=== PATIENT | male | born 1965 | race African-American/Black ===

== ENCOUNTER 2021-01-16 13:28 | Inpatient (IN) | payer OTHER ==
[2021-01-16 15:12] VITALS: BMI 32.5
[2021-01-16] MEDS ORDERED: MAGNESIUM CITRATE 300 ML BOTTLE PO PRN (21:57)
[2021-01-16] MEDS ORDERED: ACETAMINOPHEN 325 MG TABLET (FP) PO PRN (21:57)
[2021-01-16] MEDS ORDERED: IBUPROFEN 400 MG TABLET (FP) PO PRN (21:57)
[2021-01-16] MEDS ORDERED: guaiFENesin 200 MG/10 ML 10 ML UNIT-DOSE CUPS PO PRN (21:57)
[2021-01-16] MEDS ORDERED: MAGNESIUM HYDROX 2400MG/30ML ORAL SUSPENSION 30 ML CUP PO PRN (21:57)
[2021-01-16] MEDS ORDERED: MAG HYDROX/AL HYDROX/SIMETH 30 ML UNIT-DOSE CUP PO PRN (21:57)
[2021-01-16] MEDS ORDERED: LOPERAMIDE HCL 2 MG CAPSULE PO PRN (21:57)
[2021-01-16] MEDS ORDERED: P-EPHED 60MG/TRIPROLIDI 2.5MG TABLET PO PRN (21:57)
[2021-01-16] MEDS ORDERED: TUBERCULIN PPD 5 TU/0.1ML VIAL ID ONE (23:30)
[2021-01-16] MEDS: THIAMINE HCL 100 MG TABLET (FP) PO SCH (23:34)
[2021-01-16] MEDS: hydrOXYzine PAMOATE 25 MG CAPSULE (FP) PO SCH (23:34)
[2021-01-16] MEDS: MELATONIN 5 MG TABLETS PO SCH (23:37)
[2021-01-17] MEDS: hydrOXYzine PAMOATE 25 MG CAPSULE (FP) PO SCH ×5 (07:15→21:17)
[2021-01-17] MEDS: DULoxetine HCL 30 MG CAPSULE.DR PO SCH (09:59)
[2021-01-17] MEDS: levETIRAcetam 500 MG TABLET (FP) PO SCH ×2 (09:59→21:16)
[2021-01-17] MEDS: PRENATAL VITAMINS W/ FOLIC ACID TABLET (FP) PO SCH (09:59)
[2021-01-17] MEDS: NICOTINE 21 MG/24 HOURS TOPICAL PATCH TD SCH (10:00)
[2021-01-17] MEDS ORDERED: ALPRAZOLAM 2 MG PO SCH (10:00)
[2021-01-17] MEDS ORDERED: NICOTINE 7 MG/24 HOURS TOPICAL PATCH TD SCH (10:00)
[2021-01-17 10:07] LABS: ALBUMIN 2.8 g/dl (3.4-5.0); BLOOD UREA NITROGEN 13.4 mg/dL (7-18); CALCIUM 7.9 mg/dL (8.5-10.1)
[2021-01-17 10:08] LABS: HEMATOCRIT 38.9 % (35.4-49); HEMOGLOBIN 12.6 GM/dL (11.7-16.9); MCH 25.8 pg (25.7-33.7); MCHC 32.3 g/dl (32.0-35.9); MEAN CELL VOLUME 79.9 fl (80-96); MEAN PLT VOLUME 10.3 fl (7.5-11.1); PLATELET COUNT 158 10^3/uL (134-434); RBC 4.87 M/mm3 (4.00-5.60); RDW 17.5 % (11.9-15.9)
[2021-01-17 10:11] LABS: CREATININE 0.8 mg/dL (0.55-1.3)
[2021-01-17 10:12] LABS: BILIRUBIN,TOTAL 0.3 mg/dL (0.2-1); TOT PROT 5.7 g/dl (6.4-8.2)
[2021-01-17] MEDS: SENNOSIDES/DOCUSATE COMBO (SENNA PLUS) TABLET (UD) PO SCH (13:33)
[2021-01-17] MEDS: DIVALPROEX SODIUM 500 MG TABLET E.C. PO SCH ×2 (13:33→21:17)
[2021-01-17] MEDS: THIAMINE HCL 100 MG TABLET (FP) PO SCH (21:16)
[2021-01-17] MEDS: MELATONIN 5 MG TABLETS PO SCH (21:17)
[2021-01-17] MEDS: QUEtiapine FUMARATE 100 MG TABLET (FP) PO SCH (21:19)
[2021-01-17] MEDS ORDERED: QUEtiapine FUMARATE 200 MG TABLET PO SCH (22:00)
[2021-01-18] MEDS: hydrOXYzine PAMOATE 25 MG CAPSULE (FP) PO SCH ×5 (06:35→21:05)
[2021-01-18] MEDS: PRENATAL VITAMINS W/ FOLIC ACID TABLET (FP) PO SCH (09:34)
[2021-01-18] MEDS: DULoxetine HCL 30 MG CAPSULE.DR PO SCH (09:35)
[2021-01-18] MEDS: DIVALPROEX SODIUM 500 MG TABLET E.C. PO SCH ×2 (09:35→21:05)
[2021-01-18] MEDS: NICOTINE 21 MG/24 HOURS TOPICAL PATCH TD SCH (09:35)
[2021-01-18] MEDS: levETIRAcetam 500 MG TABLET (FP) PO SCH ×2 (09:35→21:05)
[2021-01-18] MEDS ORDERED: METHADONE HCL PO SCH (10:00)
[2021-01-18] MEDS ORDERED: methaDONE HCL 10 MG TABLET ONE (10:57)
[2021-01-18] MEDS ORDERED: methaDONE HCL 40 MG DISPERSABLE TABLET ONE (10:58)
[2021-01-18] MEDS: SENNOSIDES/DOCUSATE COMBO (SENNA PLUS) TABLET (UD) PO SCH (12:12)
[2021-01-18] MEDS ORDERED: MASKS NR ONE (12:55)
[2021-01-18] MEDS: THIAMINE HCL 100 MG TABLET (FP) PO SCH (21:05)
[2021-01-18] MEDS: MELATONIN 5 MG TABLETS PO SCH (21:05)
[2021-01-18] MEDS: QUEtiapine FUMARATE 100 MG TABLET (FP) PO SCH (21:05)
[2021-01-19] MEDS ORDERED: methaDONE HCL 10 MG TABLET ONE (04:42)
[2021-01-19] MEDS ORDERED: methaDONE HCL 40 MG DISPERSABLE TABLET ONE (04:42)
[2021-01-19] MEDS: hydrOXYzine PAMOATE 25 MG CAPSULE (FP) PO SCH ×5 (06:44→21:03)
[2021-01-19] MEDS: PRENATAL VITAMINS W/ FOLIC ACID TABLET (FP) PO SCH (09:33)
[2021-01-19] MEDS: levETIRAcetam 500 MG TABLET (FP) PO SCH ×2 (09:33→21:03)
[2021-01-19] MEDS: DULoxetine HCL 30 MG CAPSULE.DR PO SCH (09:33)
[2021-01-19] MEDS: DIVALPROEX SODIUM 500 MG TABLET E.C. PO SCH ×2 (09:34→21:03)
[2021-01-19] MEDS: NICOTINE 21 MG/24 HOURS TOPICAL PATCH TD SCH (09:34)
[2021-01-19] MEDS: SENNOSIDES/DOCUSATE COMBO (SENNA PLUS) TABLET (UD) PO SCH (09:35)
[2021-01-19] MEDS: QUEtiapine FUMARATE 100 MG TABLET (FP) PO SCH (21:03)
[2021-01-19] MEDS: THIAMINE HCL 100 MG TABLET (FP) PO SCH (21:03)
[2021-01-19] MEDS: MELATONIN 5 MG TABLETS PO SCH (21:03)
[2021-01-20] MEDS ORDERED: methaDONE HCL 40 MG DISPERSABLE TABLET ONE (02:54)
[2021-01-20] MEDS ORDERED: methaDONE HCL 10 MG TABLET ONE (02:54)
[2021-01-20] MEDS: hydrOXYzine PAMOATE 25 MG CAPSULE (FP) PO SCH ×5 (06:42→21:03)
[2021-01-20] MEDS: PRENATAL VITAMINS W/ FOLIC ACID TABLET (FP) PO SCH (09:54)
[2021-01-20] MEDS: DIVALPROEX SODIUM 500 MG TABLET E.C. PO SCH ×2 (09:54→21:03)
[2021-01-20] MEDS: NICOTINE 21 MG/24 HOURS TOPICAL PATCH TD SCH (09:54)
[2021-01-20] MEDS: SENNOSIDES/DOCUSATE COMBO (SENNA PLUS) TABLET (UD) PO SCH (09:55)
[2021-01-20] MEDS: DULoxetine HCL 30 MG CAPSULE.DR PO SCH (09:55)
[2021-01-20] MEDS: levETIRAcetam 500 MG TABLET (FP) PO SCH ×2 (09:55→21:03)
[2021-01-20] MEDS: MELATONIN 5 MG TABLETS PO SCH (21:02)
[2021-01-20] MEDS: THIAMINE HCL 100 MG TABLET (FP) PO SCH (21:03)
[2021-01-20] MEDS: QUEtiapine FUMARATE 100 MG TABLET (FP) PO SCH (21:03)
[2021-01-21] MEDS ORDERED: methaDONE HCL 10 MG TABLET ONE (04:43)
[2021-01-21] MEDS ORDERED: methaDONE HCL 40 MG DISPERSABLE TABLET ONE (04:43)
[2021-01-21] MEDS: hydrOXYzine PAMOATE 25 MG CAPSULE (FP) PO SCH ×5 (06:23→21:48)
[2021-01-21] MEDS: PRENATAL VITAMINS W/ FOLIC ACID TABLET (FP) PO SCH (09:43)
[2021-01-21] MEDS: levETIRAcetam 500 MG TABLET (FP) PO SCH ×2 (09:44→21:48)
[2021-01-21] MEDS: DIVALPROEX SODIUM 500 MG TABLET E.C. PO SCH ×2 (09:44→21:48)
[2021-01-21] MEDS: SENNOSIDES/DOCUSATE COMBO (SENNA PLUS) TABLET (UD) PO SCH (09:45)
[2021-01-21] MEDS: NICOTINE 21 MG/24 HOURS TOPICAL PATCH TD SCH (09:45)
[2021-01-21] MEDS: DULoxetine HCL 30 MG CAPSULE.DR PO SCH (09:46)
[2021-01-21] MEDS: MELATONIN 5 MG TABLETS PO SCH (21:47)
[2021-01-21] MEDS: THIAMINE HCL 100 MG TABLET (FP) PO SCH (21:48)
[2021-01-21] MEDS: QUEtiapine FUMARATE 200 MG TABLET PO SCH (21:48)
[2021-01-22] MEDS ORDERED: methaDONE HCL 10 MG TABLET ONE (04:48)
[2021-01-22] MEDS ORDERED: methaDONE HCL 40 MG DISPERSABLE TABLET ONE (04:48)
[2021-01-22] MEDS: hydrOXYzine PAMOATE 25 MG CAPSULE (FP) PO SCH ×5 (06:54→21:06)
[2021-01-22] MEDS: DIVALPROEX SODIUM 500 MG TABLET E.C. PO SCH ×2 (09:39→21:06)
[2021-01-22] MEDS: PRENATAL VITAMINS W/ FOLIC ACID TABLET (FP) PO SCH (09:39)
[2021-01-22] MEDS: DULoxetine HCL 30 MG CAPSULE.DR PO SCH (09:39)
[2021-01-22] MEDS: levETIRAcetam 500 MG TABLET (FP) PO SCH ×2 (09:39→21:06)
[2021-01-22] MEDS: SENNOSIDES/DOCUSATE COMBO (SENNA PLUS) TABLET (UD) PO SCH (09:40)
[2021-01-22] MEDS: NICOTINE 21 MG/24 HOURS TOPICAL PATCH TD SCH (09:42)
[2021-01-22 13:27] LABS: PH,URINE 7.5 (5.0-8.0); URINE APPEARANCE CLEAR; URINE BILIRUBIN NEGATIVE (NEGATIVE); URINE COLOR YELLOW; URINE GLUCOSE (UA) 1+ (NEGATIVE); URINE KETONE NEGATIVE (NEGATIVE); URINE LEUK ESTERASE NEGATIVE (NEGATIVE); URINE NITRITE NEGATIVE (NEGATIVE); URINE PROTEIN NEGATIVE (NEGATIVE)
[2021-01-22] MEDS: THIAMINE HCL 100 MG TABLET (FP) PO SCH (21:06)
[2021-01-22] MEDS: QUEtiapine FUMARATE 200 MG TABLET PO SCH (21:06)
[2021-01-22] MEDS: BACITRACIN 0.9 GM PACKET TP SCH (21:07)
[2021-01-22] MEDS: MELATONIN 5 MG TABLETS PO SCH (21:07)
[2021-01-23] MEDS ORDERED: methaDONE HCL 40 MG DISPERSABLE TABLET ONE (03:08)
[2021-01-23] MEDS ORDERED: methaDONE HCL 10 MG TABLET ONE (03:08)
[2021-01-23] MEDS: hydrOXYzine PAMOATE 25 MG CAPSULE (FP) PO SCH ×3 (06:37→14:01)
[2021-01-23] MEDS ORDERED: PT OWN MED DRAWER 7, Y5N ONE (08:44)
[2021-01-23] MEDS: PRENATAL VITAMINS W/ FOLIC ACID TABLET (FP) PO SCH (09:33)
[2021-01-23] MEDS: levETIRAcetam 500 MG TABLET (FP) PO SCH ×2 (09:34→21:15)
[2021-01-23] MEDS: DULoxetine HCL 30 MG CAPSULE.DR PO SCH (09:34)
[2021-01-23] MEDS: DIVALPROEX SODIUM 500 MG TABLET E.C. PO SCH ×2 (09:34→21:15)
[2021-01-23] MEDS: NICOTINE 21 MG/24 HOURS TOPICAL PATCH TD SCH (09:35)
[2021-01-23] MEDS: SENNOSIDES/DOCUSATE COMBO (SENNA PLUS) TABLET (UD) PO SCH (09:35)
[2021-01-23] MEDS: BACITRACIN 0.9 GM PACKET TP SCH ×2 (09:36→21:15)
[2021-01-23] MEDS: QUEtiapine FUMARATE 200 MG TABLET PO SCH (21:15)
[2021-01-23] MEDS: THIAMINE HCL 100 MG TABLET (FP) PO SCH (21:15)
[2021-01-23] MEDS: hydrOXYzine PAMOATE 25 MG CAPSULE (FP) PO PRN (21:15)
[2021-01-23] MEDS: MELATONIN 5 MG TABLETS PO SCH (21:16)
[2021-01-24] MEDS ORDERED: methaDONE HCL 10 MG TABLET ONE (03:45)
[2021-01-24] MEDS ORDERED: methaDONE HCL 40 MG DISPERSABLE TABLET ONE (03:45)
[2021-01-24] MEDS: DIVALPROEX SODIUM 500 MG TABLET E.C. PO SCH ×2 (09:35→21:01)
[2021-01-24] MEDS: PRENATAL VITAMINS W/ FOLIC ACID TABLET (FP) PO SCH (09:35)
[2021-01-24] MEDS: SENNOSIDES/DOCUSATE COMBO (SENNA PLUS) TABLET (UD) PO SCH (09:36)
[2021-01-24] MEDS: NICOTINE 21 MG/24 HOURS TOPICAL PATCH TD SCH (09:36)
[2021-01-24] MEDS: levETIRAcetam 500 MG TABLET (FP) PO SCH ×2 (09:36→21:01)
[2021-01-24] MEDS: DULoxetine HCL 30 MG CAPSULE.DR PO SCH (09:36)
[2021-01-24] MEDS: BACITRACIN 0.9 GM PACKET TP SCH ×2 (09:36→21:01)
[2021-01-24] MEDS: QUEtiapine FUMARATE 200 MG TABLET PO SCH (21:01)
[2021-01-24] MEDS: THIAMINE HCL 100 MG TABLET (FP) PO SCH (21:01)
[2021-01-24] MEDS: MELATONIN 5 MG TABLETS PO SCH (21:02)
[2021-01-25] MEDS ORDERED: methaDONE HCL 10 MG TABLET ONE (06:54)
[2021-01-25] MEDS ORDERED: methaDONE HCL 40 MG DISPERSABLE TABLET ONE (06:54)
[2021-01-25] MEDS: DIVALPROEX SODIUM 500 MG TABLET E.C. PO SCH ×2 (10:00→21:12)
[2021-01-25] MEDS: DULoxetine HCL 30 MG CAPSULE.DR PO SCH ×2 (10:00→10:05)
[2021-01-25] MEDS: PRENATAL VITAMINS W/ FOLIC ACID TABLET (FP) PO SCH (10:00)
[2021-01-25] MEDS: BACITRACIN 0.9 GM PACKET TP SCH ×2 (10:00→21:12)
[2021-01-25] MEDS: levETIRAcetam 500 MG TABLET (FP) PO SCH ×2 (10:00→21:12)
[2021-01-25] MEDS: NICOTINE 21 MG/24 HOURS TOPICAL PATCH TD SCH (10:01)
[2021-01-25] MEDS: SENNOSIDES/DOCUSATE COMBO (SENNA PLUS) TABLET (UD) PO SCH (10:01)
[2021-01-25] MEDS: THIAMINE HCL 100 MG TABLET (FP) PO SCH (21:12)
[2021-01-25] MEDS: QUEtiapine FUMARATE 200 MG TABLET PO SCH (21:13)
[2021-01-25] MEDS: MELATONIN 5 MG TABLETS PO SCH (21:13)
[2021-01-25] MEDS: hydrOXYzine PAMOATE 25 MG CAPSULE (FP) PO PRN (21:13)
[2021-01-25] MEDS: NICOTINE POLACRILEX 2 MG GUM BC PRN (21:19)
[2021-01-26] MEDS ORDERED: methaDONE HCL 10 MG TABLET ONE (02:41)
[2021-01-26] MEDS ORDERED: methaDONE HCL 40 MG DISPERSABLE TABLET ONE (02:41)
[2021-01-26] MEDS ORDERED: PT OWN MED DRAWER 7, Y5N ONE (08:52)
[2021-01-26] MEDS: BACITRACIN 0.9 GM PACKET TP SCH ×2 (09:54→21:27)
[2021-01-26] MEDS: HYDROCHLOROTHIAZIDE 12.5 MG CAPSULE (FP) PO SCH (09:55)
[2021-01-26] MEDS: PRENATAL VITAMINS W/ FOLIC ACID TABLET (FP) PO SCH (09:55)
[2021-01-26] MEDS: amLODIPine BESYLATE 10 MG TABLET (FP) PO SCH (09:55)
[2021-01-26] MEDS: levETIRAcetam 500 MG TABLET (FP) PO SCH ×2 (09:55→21:27)
[2021-01-26] MEDS: DIVALPROEX SODIUM 500 MG TABLET E.C. PO SCH ×2 (09:55→21:27)
[2021-01-26] MEDS: SENNOSIDES/DOCUSATE COMBO (SENNA PLUS) TABLET (UD) PO SCH (09:55)
[2021-01-26] MEDS: DULoxetine HCL 30 MG CAPSULE.DR PO SCH (09:55)
[2021-01-26] MEDS: hydrOXYzine PAMOATE 25 MG CAPSULE (FP) PO PRN ×2 (09:55→21:27)
[2021-01-26] MEDS: NICOTINE 21 MG/24 HOURS TOPICAL PATCH TD SCH (09:56)
[2021-01-26] MEDS: NICOTINE POLACRILEX 2 MG GUM BC PRN (13:41)
[2021-01-26] MEDS: THIAMINE HCL 100 MG TABLET (FP) PO SCH (21:27)
[2021-01-26] MEDS: QUEtiapine FUMARATE 200 MG TABLET PO SCH (21:27)
[2021-01-26] MEDS: MELATONIN 5 MG TABLETS PO SCH (21:27)
[2021-01-27] MEDS ORDERED: methaDONE HCL 10 MG TABLET ONE (03:30)
[2021-01-27] MEDS ORDERED: methaDONE HCL 40 MG DISPERSABLE TABLET ONE (03:30)
[2021-01-27] MEDS ORDERED: PT OWN MED DRAWER 7, Y5N ONE (08:35)
[2021-01-27] MEDS: DIVALPROEX SODIUM 500 MG TABLET E.C. PO SCH ×2 (09:49→21:03)
[2021-01-27] MEDS: DULoxetine HCL 30 MG CAPSULE.DR PO SCH (09:49)
[2021-01-27] MEDS: levETIRAcetam 500 MG TABLET (FP) PO SCH ×2 (09:49→21:03)
[2021-01-27] MEDS: BACITRACIN 0.9 GM PACKET TP SCH ×2 (09:49→21:03)
[2021-01-27] MEDS: NICOTINE 21 MG/24 HOURS TOPICAL PATCH TD SCH (09:50)
[2021-01-27] MEDS: SENNOSIDES/DOCUSATE COMBO (SENNA PLUS) TABLET (UD) PO SCH (09:51)
[2021-01-27] MEDS: PRENATAL VITAMINS W/ FOLIC ACID TABLET (FP) PO SCH (09:51)
[2021-01-27] MEDS: NICOTINE POLACRILEX 2 MG GUM BC PRN (09:52)
[2021-01-27] MEDS: HYDROCHLOROTHIAZIDE 12.5 MG CAPSULE (FP) PO SCH (10:02)
[2021-01-27] MEDS: amLODIPine BESYLATE 10 MG TABLET (FP) PO SCH (10:03)
[2021-01-27] MEDS: THIAMINE HCL 100 MG TABLET (FP) PO SCH (21:03)
[2021-01-27] MEDS: QUEtiapine FUMARATE 200 MG TABLET PO SCH (21:03)
[2021-01-27] MEDS: MELATONIN 5 MG TABLETS PO SCH (21:05)
[2021-01-28] MEDS ORDERED: methaDONE HCL 10 MG TABLET ONE (03:32)
[2021-01-28] MEDS ORDERED: methaDONE HCL 40 MG DISPERSABLE TABLET ONE (03:32)
[2021-01-28] MEDS: DIVALPROEX SODIUM 500 MG TABLET E.C. PO SCH ×2 (09:21→21:41)
[2021-01-28] MEDS: HYDROCHLOROTHIAZIDE 12.5 MG CAPSULE (FP) PO SCH (09:21)
[2021-01-28] MEDS: levETIRAcetam 500 MG TABLET (FP) PO SCH ×2 (09:21→21:41)
[2021-01-28] MEDS: BACITRACIN 0.9 GM PACKET TP SCH ×2 (09:21→21:42)
[2021-01-28] MEDS: amLODIPine BESYLATE 10 MG TABLET (FP) PO SCH (09:22)
[2021-01-28] MEDS: DULoxetine HCL 30 MG CAPSULE.DR PO SCH (09:22)
[2021-01-28] MEDS: SENNOSIDES/DOCUSATE COMBO (SENNA PLUS) TABLET (UD) PO SCH (09:23)
[2021-01-28] MEDS: NICOTINE 21 MG/24 HOURS TOPICAL PATCH TD SCH (09:23)
[2021-01-28] MEDS: PRENATAL VITAMINS W/ FOLIC ACID TABLET (FP) PO SCH (09:23)
[2021-01-28] MEDS ORDERED: PT OWN MED DRAWER 7, Y5N ONE ×3 (10:02→10:11)
[2021-01-28] MEDS: THIAMINE HCL 100 MG TABLET (FP) PO SCH (21:41)
[2021-01-28] MEDS: QUEtiapine FUMARATE 200 MG TABLET PO SCH (21:41)
[2021-01-28] MEDS: MELATONIN 5 MG TABLETS PO SCH (21:41)
[2021-01-29] MEDS ORDERED: methaDONE HCL 10 MG TABLET ONE (03:19)
[2021-01-29] MEDS ORDERED: methaDONE HCL 40 MG DISPERSABLE TABLET ONE (03:19)
[2021-01-29] MEDS: BACITRACIN 0.9 GM PACKET TP SCH ×2 (09:34→21:03)
[2021-01-29] MEDS: levETIRAcetam 500 MG TABLET (FP) PO SCH ×2 (09:34→21:03)
[2021-01-29] MEDS: NICOTINE 21 MG/24 HOURS TOPICAL PATCH TD SCH (09:34)
[2021-01-29] MEDS: amLODIPine BESYLATE 10 MG TABLET (FP) PO SCH (09:34)
[2021-01-29] MEDS: DIVALPROEX SODIUM 500 MG TABLET E.C. PO SCH ×2 (09:34→21:03)
[2021-01-29] MEDS: SENNOSIDES/DOCUSATE COMBO (SENNA PLUS) TABLET (UD) PO SCH (09:35)
[2021-01-29] MEDS: PRENATAL VITAMINS W/ FOLIC ACID TABLET (FP) PO SCH (09:35)
[2021-01-29] MEDS: DULoxetine HCL 30 MG CAPSULE.DR PO SCH (09:35)
[2021-01-29] MEDS: HYDROCHLOROTHIAZIDE 12.5 MG CAPSULE (FP) PO SCH (09:47)
[2021-01-29] MEDS: MELATONIN 5 MG TABLETS PO SCH (21:03)
[2021-01-29] MEDS: THIAMINE HCL 100 MG TABLET (FP) PO SCH (21:03)
[2021-01-29] MEDS: QUEtiapine FUMARATE 200 MG TABLET PO SCH (21:03)
[2021-01-30] MEDS ORDERED: methaDONE HCL 10 MG TABLET ONE (03:08)
[2021-01-30] MEDS ORDERED: methaDONE HCL 40 MG DISPERSABLE TABLET ONE (03:08)
[2021-01-30 06:41] VITALS: BP 153/77; PULSE 80; TEMP 97.7
[2021-01-30] MEDS ORDERED: PT OWN MED DRAWER 7, Y5N ONE (08:59)
[2021-01-30] MEDS: HYDROCHLOROTHIAZIDE 12.5 MG CAPSULE (FP) PO SCH (09:20)
[2021-01-30] MEDS: PRENATAL VITAMINS W/ FOLIC ACID TABLET (FP) PO SCH (09:20)
[2021-01-30] MEDS: DIVALPROEX SODIUM 500 MG TABLET E.C. PO SCH (09:20)
[2021-01-30] MEDS: amLODIPine BESYLATE 10 MG TABLET (FP) PO SCH (09:20)
[2021-01-30] MEDS: levETIRAcetam 500 MG TABLET (FP) PO SCH (09:20)
[2021-01-30] MEDS: NICOTINE 21 MG/24 HOURS TOPICAL PATCH TD SCH ×2 (09:21→09:25)
[2021-01-30] MEDS: SENNOSIDES/DOCUSATE COMBO (SENNA PLUS) TABLET (UD) PO SCH (09:21)
[2021-01-30] MEDS: BACITRACIN 0.9 GM PACKET TP SCH (09:21)
== END 2021-01-30 09:35 | disposition home or self-care (01) | DRG 895 ==
LOC: YASAS 13:28 → Y5N 21:55
PROVIDERS: ADMIT Allergy & Immunology; ATTEND Allergy & Immunology
PROC: HZ42ZZZ Group Counseling for Substance Abuse Treatment, Cognitive-Behavioral (ICD-10-PCS; principal; 2021-01-16)
DX: F10.20 Alcohol dependence, uncomplicated (principal); F11.20 Opioid dependence, uncomplicated; F13.20 Sedative, hypnotic or anxiolytic dependence, uncomplicated; F10.282 Alcohol dependence with alcohol-induced sleep disorder; F17.210 Nicotine dependence, cigarettes, uncomplicated; F25.9 Schizoaffective disorder, unspecified; I10 Essential (primary) hypertension; G40.909 Epilepsy, unspecified, not intractable, without status epilepticus; K59.01 Slow transit constipation; L85.3 Xerosis cutis; E66.9 Obesity, unspecified; Z68.32 Body mass index [BMI] 32.0-32.9, adult; Z56.0 Unemployment, unspecified; Z59.0 Homelessness
CPT/HCPCS: 36415; 80053; 80164; 81003; 85027; 86780; C9803; U0003; U0005